=== PATIENT | male | born 1975 | race American Indian/Alaskan Native ===

== ENCOUNTER 2021-03-27 11:18 | Emergency (ER) | payer OTHER ==
--- NOTE | 2021-03-27 14:41 | Emergency Department Report ---
HPI - General Chief Complaint: Arrhythmia/Palpitations Time Seen by Provider: 03/27/21 14:30 - HPI HPI: Room 22 The patient is a 46-year-old male presenting with chief complaint of palpitations. The patient states last night he was awakened with palpitations feel as though his heart was racing. Patient states he was unable to go back to sleep and eventually came to the emergency department. Patient states the palpitations resolved just prior to arrival to the ED. Patient denied ever having chest pain, shortness of breath nausea or vomiting. Patient denies history of fever or cough. Patient is currently asymptomatic ED Past Medical Hx - Past Medical History Previous Medical History?: No - Surgical History Past Surgical History?: Yes Additional Surgical History: leg - Family History Family history: no significant - Social History Smoking Status: Never Smoker Substance Use Type: None (Denies illicit drug use), Alcohol (Occasional) - Medications Home Medications: Home Medications Medication Instructions Recorded Confirmed Last Taken Type hydrOXYzine PAMOATE [Vistaril] 50 mg PO Q6HR PRN #10 capsule 03/27/21 Unknown Rx ED Review of Systems ROS: Stated complaint: HEART RACING HANDS SHAKING LIGHT HEADED Other details as noted in HPI Constitutional: denies: fever Eyes: denies: eye pain ENT: denies: throat pain Respiratory: denies: shortness of breath Cardiovascular: palpitations. denies: chest pain Endocrine: no symptoms reported Gastrointestinal: denies: abdominal pain, nausea, vomiting Genitourinary: denies: dysuria Musculoskeletal: denies: back pain Neurological: denies: headache Physical Exam - Physical Exam Vital Signs: Vital Signs 03/27/21 03/27/21 03/27/21 11:29 14:17 14:20 Temperature 98.3 F Pulse Rate 74 68 Respiratory 20 19 14 Rate Blood Pressure 137/73 O2 Sat by Pulse 96 97 Oximetry Physical Exam: GENERAL: The patient is well-developed well-nourished male lying on stretcher not appearing to be in acute distress. [] HEENT: Normocephalic. Atraumatic. Extraocular motions are intact. Patient has moist mucous membranes. NECK: Supple. Trachea midline CHEST/LUNGS: Clear to auscultation. There is no respiratory distress noted. HEART/CARDIOVASCULAR: Regular. There is no tachycardia. There is no gallop rub or murmur. ABDOMEN: Abdomen is soft, nontender. Patient has normal bowel sounds. There is no abdominal distention. SKIN: There is no rash. There is no edema. There is no diaphoresis. NEURO: The patient is awake, alert, and oriented. The patient is cooperative. The patient has no focal neurologic deficits. The patient has normal speech. GCS 15 MUSCULOSKELETAL: There is no evidence of acute injury. ED Course Vital Signs 03/27/21 03/27/21 03/27/21 11:29 14:17 14:20 Temperature 98.3 F Pulse Rate 74 68 Respiratory 20 19 14 Rate Blood Pressure 137/73 O2 Sat by Pulse 96 97 Oximetry ED Medical Decision Making - Lab Data Result diagrams: 03/27/21 14:42 03/27/21 14:42 Laboratory Tests 03/27/21 03/27/21 03/27/21 14:42 14:42 14:42 WBC 2.9 L RBC 5.14 H Hgb 15.6 H Hct 46.2 H MCV 90 MCH 30 MCHC 34 RDW 14.6 Plt Count 254 Lymph % (Auto) 35.4 H [place] % (Auto) 8.6 H Eos % (Auto) 0.2 Baso % (Auto) 1.0 Lymph # (Auto) 1.0 L [place] # (Auto) 0.3 Eos # (Auto) 0.0 Baso # (Auto) 0.0 Seg Neutrophils % 54.8 Seg Neutrophils # 1.6 L D-Dimer 161.27 Sodium 135 L Potassium 3.8 Chloride 95.0 L Carbon Dioxide 26 Anion Gap 18 BUN 6 L Creatinine 0.9 Estimated GFR > 60 BUN/Creatinine Ratio 7 Glucose 74 L Calcium 9.4 Magnesium 1.60 L Total Creatine Kinase 384 H CK-MB (CK-2) 3.3 CK-MB (CK-2) Rel Index 0.8 Troponin T < 0.010 TSH Free T4 03/27/21 14:42 WBC RBC Hgb Hct MCV MCH MCHC RDW Plt Count Lymph % (Auto) [place] % (Auto) Eos % (Auto) Baso % (Auto) Lymph # (Auto) [place] # (Auto) Eos # (Auto) Baso # (Auto) Seg Neutrophils % Seg Neutrophils # D-Dimer Sodium Potassium Chloride Carbon Dioxide Anion Gap BUN Creatinine Estimated GFR BUN/Creatinine Ratio Glucose Calcium Magnesium Total Creatine Kinase CK-MB (CK-2) CK-MB (CK-2) Rel Index Troponin T TSH 0.564 Free T4 0.87 - EKG Data -: EKG Interpreted by Me EKG shows normal: sinus rhythm Rate: normal - EKG Data When compared to previous EKG there are: previous EKG unavailable Interpretation: nonspecific ST-T wave barbra (T wave inversion lead 3) - Radiology Data Radiology results: report reviewed (Chest x-ray), image reviewed (Chest x-ray) interpreted by me: Chest x-ray-no focal filtrate, no pneumothorax. No foreign body seen [facility] [address] [place] [address] XRay Report Signed Patient: MIMI UGALDE MR#: [id number] : 1975 Acct:[id number] Age/Sex: 46 / M ADM Date: 03/27/21 Loc: ED Attending Dr: Ordering Physician: TAHMINA EAST MD Date of Service: 03/27/21 Procedure(s): XR chest 1V ap Accession Number(s): [id number] cc: TAHMINA EATS MD Fluoro Time In Minutes: CHEST 1 VIEW INDICATION: Palpitations. COMPARISON: None. FINDINGS: Support devices: None. Heart: Normal. Lungs/Pleura: No acute pulmonary or pleural findings. IMPRESSION: 1. No acute findings. Signer Name: Deonte Ortiz MD Signed: 03/27/2021 4:34 PM Workstation Name: [id number] Transcribed By: JOE Del Castillo christy By: Deonte Ortiz MD Electronically Authenticated By: Deonte Ortiz MD Signed Date/Time: 03/27/211633 DD/ 163 TD/TT: Print Cancel - Differential Diagnosis SVT, dysrhythmia, PE, anxiety, Critical care attestation.: If time is entered above; I have spent that time in minutes in the direct care of this critically ill patient, excluding procedure time. ED Disposition Clinical Impression: Palpitations, Hypomagnesemia, Leukopenia Disposition: DC-01 TO HOME OR SELFCARE Is pt being admited?: No Does the pt Need Aspirin: No Condition: Stable Instructions: Hypomagnesemia, Palpitations, [id number], Ambulatory Cardiac Monitoring Additional Instructions: Return to the emergency department should you develop worsening symptoms, inability to tolerate food or liquids, high fever or any other concerns Prescriptions: hydrOXYzine PAMOATE [Vistaril] 50 mg PO Q6HR PRN #10 capsule PRN Reason: Anxiety Referrals: [facility] [Provider Group] - 3-5 Days EDIL BEJARANO MD [Staff Physician] - [facility] (Dr. Bejarano is a public service officer. Please follow-up with him for further evaluation) Time of Disposition: 16:15
[2021-03-27 15:36] LABS: Eosinophils % (Auto) 0.2 % (0.0-4.3); Hematocrit 46.2 % (35.5-45.6); Hemoglobin 15.6 gm/dl (11.8-15.2); Lymphocytes % (Auto) 35.4 % (13.4-35.0); Mean Corpuscular HGB Conc 34 % (32-34); Mean Corpuscular Volume 90 fl (84-94); Monocytes # (Auto) 0.3 K/mm3 (0.0-0.8); Monocytes % (Auto) 8.6 % (0.0-7.3); Platelet Count 254 K/mm3 (140-440); Red Blood Count 5.14 M/mm3 (3.65-5.03); Red Cell Distribution Width 14.6 % (13.2-15.2)
[2021-03-27 16:02] LABS: BUN/Creatinine Ratio 7; Blood Urea Nitrogen 6 mg/dL (9-20); Calcium 9.4 mg/dL (8.4-10.2); Creatine Kinase MB 3.3 ng/mL (0.0-4.0); Hemolysis Index 13
[2021-03-27] MEDS ORDERED: MAGNESIUM SULFATE 2 GM/50 ML BAG IV ONE (16:04)
[2021-03-27 16:12] LABS: Free T4 (Free Thyroxine) 0.87 ng/dL (0.76-1.46)
--- NOTE | 2021-03-27 16:38 | XRay Report ---
CHEST 1 VIEW INDICATION: Palpitations. COMPARISON: None. FINDINGS: Support devices: None. Heart: Normal. Lungs/Pleura: No acute pulmonary or pleural findings. IMPRESSION: 1. No acute findings. Signer Name: Deonte Ortiz MD Signed: 03/27/2021 4:34 PM Workstation Name: [id number]
[2021-03-27 17:35] VITALS: BP 149/60
--- NOTE | 2021-03-29 12:12 | Electrocardiograph Report ---
[facility] Test Date: 2021-03-27 Test Time: 11:36:22 Pat Name: MIMI UGALDE Department: Room: Gender: M Miscellaneous Machine Operator: MILA : 1975 Requested By: ED DOC Order Number: [id number] Reading MD: Roel Yanes Measurements Intervals [place] Rate: 73 P: 47 GA: 151 QRS: 30 QRSD: 93 T: 1 QT: 380 QTc: 415 Interpretive Statements Sinus rhythm Atrial premature complex Probable left atrial enlargement No previous ECG available for comparison Electronically Signed On 03-29-2021 12:12:22 EDT by Roel Yanes
== END 2021-03-27 17:35 | disposition home or self-care (01) ==
LOC: ED 11:18
DX: E83.42 Hypomagnesemia (principal); D72.819 Decreased white blood cell count, unspecified; R00.2 Palpitations; Z98.890 Other specified postprocedural states; Z79.899 Other long term (current) drug therapy
CPT/HCPCS: 36415; 71045; 80048; 82550; 82553; 83735; 84439; 84443; 84484; 85025; 85379; 93005; 96365; 99284; J3475